=== PATIENT | female | born 1960 | race Hispanic/Latino ===

== ENCOUNTER 2018-10-03 08:14 | Inpatient (IN) | payer MEDICARE ==
[~2018-10-03] VITALS: Ht 152.4 cm; Wt 59.0 kg
--- OUTSIDE RECORDS SUMMARY | 2018-10-03 08:17 | XMS REPORT ---
Author Author [facility] Address Unknown Phone Unavailable Care Team Providers Care Cable Driller Name Role Phone Unavailable Unavailable Problems This patient has no known problems. Allergies, Adverse Reactions, Alerts This patient has no known allergies or adverse reactions. Medications This patient has no known medications. Encounters Start Date/Time End Date/Time Encounter Type Admission Type Attending [facility] Care Facility Care Department Encounter ID 2018-10-01 14:56:00 2018-10-01 14:56:00 Emergency E [facility]SE [id number] 2018-09-26 17:49:00 2018-09-26 17:49:00 Emergency E MHSE [id number]
--- OUTSIDE RECORDS SUMMARY | 2018-10-03 08:17 | XMS REPORT | Summary of Care ---
Author Author ALISSA Hester, SHAKEEL Organization Unknown Address Unknown Phone Unavailable Care Team Providers Care Cork Tile Floor Layer Name Role Phone ROSA RODNEY, CARLOS ENRIQUE MENSAH Unavailable Unavailable Unavailable Unavailable Functional Status Name Dates Details Functional status health issues are not documented Status: Name Dates Details Cognitive status health issues are not documented Status: Problems Name Dates Details Bilateral carotid artery disease (447.9, I77.9) Status: Active 3-vessel CAD (414.00, I25.10) Status: Active PVD (peripheral vascular disease) (443.9, I73.9) Status: Active Medications Name Dates Details PhosLo 667 MG TABS R.N. Active Pepcid 20 MG Oral Tablet * Refills: 0 R.N. Active Plavix 75 MG Oral Tablet * Refills: 0 R.N. Active Lipitor 20 MG Oral Tablet * Refills: 0 R.N. Active Toprol XL 25 MG Oral Tablet Extended Release 24 Hour * Refills: 0 R.N. Active Allergies and Adverse Reactions Name Dates Details No Known Allergies (Allergy) Status: Active Procedures Procedure Dates Details Procedures not documented Immunization Name Dates Details Immunizations not documented Social History Name Dates Details - Status: Name Dates Details Current every day smoker Vital Signs Date Test Result Details [id number] BP Systolic 102 mm[Hg] Status: BP Diastolic 66 mm[Hg] Status: Height 61 in Status: Weight 130 lb Status: Body Mass Index Calculated 24.56 kg/m2 Status: Body Surface Area Calculated 1.57 m2 Status: Results Date Description Value Details [id number] XRAY Chest 2 views [id number] Chest 2 views SEE NOTES Comments: Study: Chest 2 views DXClinical Indication: Coughing - preopComparison: Chest x-ray from 09/23/2017FINDINGS: The cardiac silhouette is normal in size. The lungs are clear andwithout consolidation or congestion. No pleural effusion or pneumothorax isseen. The osseous structures are stable. Right internal jugular approachdialysis catheter is stable. Aortic arch calcification is seen.IMPRESSION:No acute cardiopulmonary disease.SL: [id number] by: Neo Florezictated Date/time: 12/18/17 12:35Electronically Signed by: Neo Florez MD 12/19/1811:36FINAL REPORT Plan of Care Name Dates Details Planned Observations Planned Goals not documented Instructions Name Dates Details Instructions not documented Encounters Appointment; DR NIKIA REY Encounter Diagnosis: Problem not documented On: 07-Dec-2017 14:00 Appointment; PURVI MONTEJO M.D. Encounter Diagnosis: Problem not documented On: 07-Dec-2017 14:30
[2018-10-03 08:59] LABS: BASOPHILS # (AUTO) 0.1 (0.0-0.1); BASOPHILS % 0.6 % (0.0-1.0); EOSINOPHILS # (AUTO) 0.1 (0.0-0.4); EOSINOPHILS % 1.5 % (0.0-6.0); HEMATOCRIT 26.8 % (34.2-44.1); HEMOGLOBIN 9.2 g/dL (12.0-16.0); LYMPHOCYTES # (AUTO) 1.2 (1.0-3.2); LYMPHOCYTES % 12.9 % (18.0-39.1); MEAN CORPUSCULAR HEMOGLOBIN 31.9 pg (28-32); MEAN CORPUSCULAR HGB CONC 34.3 g/dL (31-35); MEAN CORPUSCULAR VOLUME 93.1 fL (81-99); MONOCYTES # (AUTO) 0.8 (0.2-0.8); MONOCYTES % 8.1 % (4.4-11.3); NEUTROPHILS # (AUTO) 7.3 (2.1-6.9); NEUTROPHILS % 76.5 % (38.7-80.0); PLATELET COUNT 165 x10e3/uL (140-360); RED BLOOD COUNT 2.88 x10e6/uL (3.6-5.1); RED CELL DISTRIBUTION WIDTH 13.9 % (11.7-14.4)
[2018-10-03 09:16] LABS: ALBUMIN 3.3 g/dL (3.5-5.0); ALBUMIN/GLOBULIN RATIO 0.8 (0.8-2.0); ANION GAP 19.5 mmol/L (8-16); CALCIUM 8.1 mg/dL (8.4-10.2); CREATININE, SERUM 10.4 mg/dL (0.57-1.11); POTASSIUM 4.5 mmol/L (3.5-5.1)
--- NOTE | 2018-10-03 09:39 | Diagnostic Imaging Report ---
A single frontal view of the chest. HISTORY: NO DIALYSIS X 3 WEEKS COMPARISON: None available. DISCUSSION: Portable technique, limits sensitivity of the exam. Overlying artifacts, including monitoring leads. Tubes/Lines: None Lungs and pleura: The lungs are well inflated. Curvilinear opacity at the periphery of the left midlung, may be an artifact, scarring, or less likely subsegmental atelectasis. Mildly increased interstitial markings. No evidence of a consolidative pneumonia or pulmonary alveolar edema. No definite pleural effusion or pneumothorax is identified. Heart and mediastinum: The cardiac silhouette and central pulmonary vasculature are mildly enlarged. Bones and soft tissues: Appear unremarkable, given this limited exam. IMPRESSION: Mild cardiomegaly, central pulmonary vascular congestion, and interstitial edema. Signed by: Dr. Woo May D.O., M.M.M. on 10/03/2018 9:35 AM
[2018-10-03 09:40] LABS: CLARITY,URINE SL CLOUDY (CLEAR); COLOR,URINE YELLOW (YELLOW)
[2018-10-03 09:41] LABS: BILIRUBIN,URINE NEGATIVE (NEGATIVE); KETONES,URINE NEGATIVE (NEGATIVE); LEUKOCYTE ESTERASE ,URINE TRACE (NEGATIVE); NITRITE,URINE NEGATIVE (NEGATIVE); PROTEIN,URINE DIPSTICK 2+ (NEGATIVE); URINE UROBILINOGEN 0.2 mg/dL (0.2 - 1)
[2018-10-03 09:42] LABS: BACTERIA,URINE MODERATE /HPF; WBC,URINE (MAN) >50 /HPF (0-5)
[2018-10-03 09:43] LABS: EPITHELIAL CELLS,URINE FEW /LPF
[2018-10-03] MEDS ORDERED: VANCOMYCIN 1GM/NS 250 ML 250 ML IV ONE (10:30)
[2018-10-03] MEDS: PIPERACILLIN/TAZO 2.25 GM 50 ML IV SCH ×2 (10:41→20:35)
[2018-10-03 11:31] LABS: INR 1.07; PROTHROMBIN TIME 14.4 seconds (11.9-14.5)
[2018-10-03 11:38] LABS: CREATINE KINASE MB 6.3 ng/mL (0-5.0)
[2018-10-03] MEDS ORDERED: DEXTROSE 50% SYRINGE 50 ML IV PRN ×2 (11:45→15:15)
[2018-10-03] MEDS ORDERED: ONDANSETRON HCL INJ 2MG/ML 2ML 2 MG/ML VIAL IV PRN (11:45)
--- NOTE | 2018-10-03 12:11 | Diagnostic Imaging Report ---
LEFT FOOT - 3 Images HISTORY: Dialysis, great toe infection COMPARISON: None available. FINDINGS: Bones: Irregular erosion of the tuft of the distal phalanx of the great toe. Joints: Mild hallux valgus deformity and associated mild osteoarthrosis. Soft tissues: Nonspecific soft tissue swelling of the distal great toe. IMPRESSION: Findings compatible with osteomyelitis involving the distal phalanx of the great toe. Signed by: Dr. Woo May D.O., M.M.M. on 10/03/2018 12:07 PM
--- NOTE | 2018-10-03 12:24 | NUR ---
Call placed to Dialysis for stat orders. Spoke with Doug at the regional service manager center.
[2018-10-03 12:44] VITALS: BP 155/70
--- NOTE | 2018-10-03 14:15 | NUR ---
Call placed to dialysis environmental science technician and spoke with tapan. Spoke with Dr. hess and he stated "I have not heard from anybody and this needs to be called again".
[2018-10-03] MEDS ORDERED: METHYLPREDNISOLONE SOD SUCC 40 MG/ML VIAL 1ML IV SCH (15:15)
[2018-10-03] MEDS ORDERED: HYDROCODONE/APAP 5MG-325MG TAB PO PRN (15:15)
[2018-10-03] MEDS ORDERED: ACETAMINOPHEN 325 MG TAB PO PRN (15:15)
[2018-10-03 15:17] VITALS: BP 187/79
--- NOTE | 2018-10-03 15:20 | NUR ---
REC'D PT IN SEMI-FOWLERS POSITION. DIALYSIS PT. DIALYSIS NURSE AT BEDSIDE TO START DIALYSIS. PT C/O PAIN ON LEFT FOOT/TOE. DR. DING SEEN LEFT LEG/TOE. NO S/S OF DISTRESS.
[2018-10-03 15:21] VITALS: BP 187/79
[2018-10-03] MEDS ORDERED: SODIUM CHLORIDE 0.9% 1000ML 1,000 ML ONE (15:28)
[2018-10-03] MEDS ORDERED: METHYLPREDNISOLONE SOD SUCC 40 MG/ML VIAL 1ML IV NR (15:30)
[2018-10-03] MEDS ORDERED: NOVOLIN R100 UNIT/1 SQ (15:49)
[2018-10-03] MEDS ORDERED: IMODIUM2 MG PO (15:49)
[2018-10-03] MEDS ORDERED: CLOPIDOGREL75 MG PO (15:49)
[2018-10-03] MEDS ORDERED: TOPROL XL25 MG PO (15:49)
[2018-10-03] MEDS ORDERED: CALCIUM ACETAT667 M1 PO (15:49)
[2018-10-03] MEDS ORDERED: PANTOPRAZOLE SO40 MG PO (15:49)
[2018-10-03] MEDS ORDERED: TUMS ULTRA400 MG PO (15:49)
[2018-10-03] MEDS ORDERED: [UNRECOGNIZED DRUG - REMARK] OD (15:49)
[2018-10-03 15:50] VITALS: BP 187/79
[2018-10-03] MEDS: CALCIUM ACETATE 667 MG GELCAP PO SCH ×2 (17:00→20:35)
[2018-10-03] MEDS ORDERED: VANCOMYCIN 1GM/NS 250 ML 250 ML IV SCH (17:00)
[2018-10-03 17:09] LABS: CREATINE KINASE MB 5.7 ng/mL (0-5.0)
[2018-10-03] MEDS: INSULIN LISPRO 100 UNIT/1 ML 3ML VIAL SQ SCH ×2 (17:14→20:42)
[2018-10-03] MEDS ORDERED: [UNRECOGNIZED DRUG - OTHER] OP PRN (17:30)
--- NOTE | 2018-10-03 18:30 | NUR ---
PT FINISHED WITH DIALYSIS. TOLERATED IT WELL AND NO SEVERE S/S OF DIALYSIS PER PT AND DIALYSIS NURSE. 1.6 L OF FLUID REMOVED PER DIALYSIS NURSE. NO S/S OF DISTRESS. DIALYSIS NURSE SAID DIALYSIS WILL BE DONE TOMORROW MORNING. PASS LIFTER NURSE REPORT ON THAT.
[2018-10-03 19:17] VITALS: BP 135/61
--- NOTE | 2018-10-03 19:17 | NUR ---
PT IS RESTING IN BED. NO RESPIRATORY DISTRESS NOTED. BED IN THE LOWEST POSITION, LOCKED, AND CALL LIGHT WITHIN REACH. WILL CONTINUE TO MONITOR.
[2018-10-03] MEDS ORDERED: SODIUM CHLORIDE 0.9% 250ML 250 ML ONE (20:18)
--- NOTE | 2018-10-03 20:18 | Consultation ---
DATE OF CONSULTATION: 10/03/2018 Renal Consultation REASON FOR CONSULTATION: End-stage renal disease, metabolic acidosis, and volume overload. HISTORY OF PRESENT ILLNESS: A 58-year-old female with end-stage renal disease, on hemodialysis Thursday, Thursday, and Thursday, who has not had dialysis since September 10, 2018, presented to [facility] with shortness of breath and feeling full in her chest. The patient states that her dialysis center [facility] moved and for unclear reasons, the patient was unable to move to the new location. The patient was not placed in a new dialysis center and has been unable to get dialysis. The patient states she has been at [facility] 3 times and every time has been discharged. The patient went to her dialysis on 10/01/2018, but because she had missed so much dialysis, she was instructed to go back to the emergency room. The patient also developed toe pain in her left great toe. When she arrived, her blood pressure was 157/70 with a pulse of 88, respiratory rate of 18. The patient was admitted and Nephrology consultation was called. REVIEW OF SYSTEMS: As above. Positive shortness of breath. Some nausea. Some anorexia. No chest pain. No diarrhea. No vomiting. Otherwise, complete review of systems was done and all systems other than mentioned are negative. PAST MEDICAL HISTORY: 1. End-stage renal disease, on hemodialysis Thursday, Thursday, and Thursday. 2. Diabetes type 2. 3. Hypertension. 4. Coronary artery disease. 5. Anemia secondary to chronic kidney disease. PAST SURGICAL HISTORY: 1. CABG. 2. Left upper extremity AV fistula. SOCIAL HISTORY: Positive tobacco. No alcohol. No IV drugs. FAMILY HISTORY: Brother with end-stage renal disease. ALLERGIES: NO KNOWN DRUG ALLERGIES. CURRENT MEDICATIONS: See list. PHYSICAL EXAMINATION: VITAL SIGNS: Blood pressure 121/74, pulse 83, respiratory rate 20, temperature 97.7. GENERAL: No apparent distress. HEENT: Oropharynx is clear. No scleral icterus. No peripheral edema. NECK: Supple. Elevated jugular venous pressure. No lymphadenopathy. CHEST: Decreased breath sounds at bases anteriorly bilaterally. CARDIOVASCULAR: Regular rhythm. No murmurs or rubs. ABDOMEN: Soft. Positive bowel sounds. No tenderness. No rebound. EXTREMITIES: 1+ edema. IMAGING: Chest x-ray, mild cardiomegaly, vascular congestion. LABORATORY DATA: Sodium 141, potassium 4.5, chloride 117, CO2 9, BUN 98, creatinine 10.4, calcium 8.1, albumin 3.3. White count 9.5, hemoglobin 9.2, hematocrit 26.8, platelets 165. ASSESSMENT/PLAN: 1. End-stage renal disease. The patient is severely acidotic, volume overload. We will do emergency dialysis today and continue Thursday, Thursday, and Thursday. We will get case specialist to help set up for dialysis. 2. Anemia secondary to chronic kidney disease. We will start the patient on Epogen. Check iron stores. 3. Hypertension. Continue home medications. 4. Metabolic acidosis secondary to uremia. We will do dialysis today. 5. Volume overloaded. We will ultrafiltrate with hemodialysis. 6. Diabetes per primary team. MD DIANELYS Candelario/CARLEEN /[id number]
[2018-10-03 20:21] VITALS: BP 135/61
[2018-10-03] MEDS: HEPARIN SOD (PORCINE) 5,000 UNIT/ML VIAL SC SCH (20:41)
[2018-10-03 21:33] LABS: CREATINE KINASE MB 4.4 ng/mL (0-5.0)
--- NOTE | 2018-10-03 23:08 | History and Physical ---
CHIEF COMPLAINT: Missed hemodialysis for 3 weeks. HISTORY OF PRESENT ILLNESS: This is a 58-year-old female, known ESRD on dialysis patient Thursday, Thursday, Thursday; type 2 diabetes; hypertension, who apparently has missed hemodialysis for the last 3 weeks due to dialysis unit moving locations. The patient reports that she used to go to [facility], followed up with Dr. Lundy and due to the change in the dialysis unit, she has difficulty with transportation going to the new location in [place]. She has not been able to communicate with the dialysis unit nor has she been able to find a new location. The patient now reports to the ED with hemodialysis needs as well as a left big toe pain, has been ongoing for the last several days now. She denies any history of hyperuricemia. The patient denies any chest pain, palpitation, nausea, or vomiting. The patient is seen and evaluated at bedside on the medical floor. She is currently doing well with no other issues. She is going to receive hemodialysis . REVIEW OF SYSTEMS: Pertinent positives: Left big toe pain. Pertinent negatives: Denies any chest pain, palpitation, nausea, vomiting, diarrhea, dysuria, hematuria, frequency, urgency, lightheadedness, dizziness, abdominal pain, headaches, shortness of breath, cough, congestion, fever, or any other complaints. The rest of 14-point review of systems have been reviewed with the patient and are negative. ALLERGIES: TO IBUPROFEN. HOME MEDICATIONS: None recorded at this time. PAST MEDICAL HISTORY: ESRD on dialysis, type 2 diabetes, hypertension. PAST SURGICAL HISTORY: Dialysis tunneled catheter. FAMILY HISTORY: Hypertension and diabetes. SOCIAL HISTORY: No drugs. No alcohol. Does not smoke. Good social support. PHYSICAL EXAMINATION: VITAL SIGNS: Temperature is 95.6, pulse is 78, respiratory rate is 18, blood pressure is 155/70, pulse ox 100% on room air. GENERAL: Not in acute distress. Alert and oriented x3. Cooperative on examination. HEENT: Head is normocephalic and atraumatic. Eyes; pupils are equal, round, and reactive to light bilaterally. Extraocular motions are intact bilaterally. NECK: Supple. Good range of motion throughout. No evidence of any erythema or exudates in the posterior pharynx. She has poor dentition. PULMONARY: Clear to auscultation bilaterally. No wheezing, rales, or rhonchi. No crackles appreciated. CARDIOVASCULAR: Positive S1, S2. No murmurs, rubs, or gallops appreciated. ABDOMEN: Soft, nondistended, and nontender to palpation. Bowel sounds present. MUSCULOSKELETAL: Strength is 5/5 throughout. No evidence of any muscle deficits on examination. No weakness appreciated. NEUROLOGICAL: Cranial nerves II through XII grossly intact. No evidence of any neurological deficits on exam. SKIN: Intact. Warm to touch. Good cap refill. PSYCHIATRIC: Normal affect and mood. EXTREMITIES: No edema. Good range of motion throughout. toe is swollen, tender to palpation on examination. LAB FINDINGS: Showed white count of 9.5, hemoglobin 9.2, hematocrit 26.8, and platelets of 165. Coagulation; PT 14, INR 1, PTT 32. Chemistry; sodium 141, potassium 4.5, chloride 117, bicarb 9, anion gap of 19, BUN 98, creatinine 10.4, calcium 8.1, glucose 114. LFTs were normal. CK 77, troponin 0.042, albumin 3.3. Urinalysis concerning for underlying UTI. Blood culture is pending. IMAGING STUDIES: Chest x-ray, mild cardiomegaly with central pulmonary vascular congestion and interstitial edema. Foot x-ray is compatible with osteomyelitis involving the distal phalanx of the great toe. IMPRESSION: 1. End-stage renal disease, on hemodialysis. 2. Anemia of end-stage renal disease. 3. Left big toe concern for underlying osteomyelitis. 4. Type 2 diabetes. 5. Hypertension. PLAN: At this time, we will get ID and Nephrology consult to put her on hemodialysis treatment. This is to perform later today. She will likely need treatment tomorrow. We will discuss with Case Management about placement for a new dialysis unit. ID was consulted as her imaging studies are consistent with the left great toe osteomyelitis. She will continue with IV vancomycin and Zosyn at this time. Put on insulin sliding scale for underlying diabetes. Get a hemoglobin A1c, lipid panel, as well as a uric acid level to rule out any kind of hyperuricemia. Get PT/OT evaluation, Case Management consultation, and heparin for DVT prophylaxis. MD RAFAELA Ayala/MODL /[id number]
--- NOTE | 2018-10-03 23:43 | Consultation ---
DATE OF CONSULTATION: REASON FOR CONSULTATION: Infection of the left foot. HISTORY OF PRESENT ILLNESS: This patient who is a 58-year-old Georgian female with history of end-stage renal disease on hemodialysis, she has a left upper extremity fistula, history of atherosclerotic disease, peripheral vascular disease. Apparently, she was seen in [facility] recently and she was told that she has no circulation going to her left upper extremity as well as left foot. However, she told me she did have an ulcer on that foot, which healed. Now she is coming with redness and swelling of her left big toe. No specific trauma, but getting progressively worse over the last few days. No fever, no chills, but she feels chills occasionally. The patient came to emergency room where she was evaluated and admitted. PAST MEDICAL HISTORY: Hypertension, diabetes mellitus for several years, coronary artery disease, neuropathy, atherosclerotic disease, peripheral vascular disease, end-stage renal disease on hemodialysis for 9 months. PAST SURGICAL HISTORY: CABG, AV fistula of left upper extremity. ALLERGIES: NKA. SOCIAL HISTORY: She said she smokes every day, but she says she does not smoke too much. She has been warned about smoking several times, but she says she cannot stop. FAMILY HISTORY: Hypertension and diabetes run in the family. REVIEW OF SYSTEMS: HEENT: There is no headache, visual changes, hearing changes. GI: There is no nausea, no vomiting, no diarrhea. NEURO: There is no seizure activity or local weakness. SKIN: There are no other rashes. JOINTS: There is no erythema or edema. LABORATORY DATA: Reviewed. Her blood culture is still pending. White count 9.5, hemoglobin 9.2, and hematocrit 26. Sodium 141, potassium 4.5, and creatinine of 10. IMAGING DATA: Her foot x-ray showed osteomyelitis of distal phalanx of the great toe. MEDICATION LIST: Reviewed. She is on Zosyn and vancomycin. PHYSICAL EXAMINATION: GENERAL: She is currently alert, oriented, does not seem to be in acute distress. She does have redness and swelling. VITAL SIGNS: Stable. Currently afebrile. HEENT: She is not icteric. NECK: Supple. No JVD. No lymphadenopathy. No thyromegaly. CHEST: Clear bilateral. HEART: S1, S2. No S3, S4, or murmur. ABDOMEN: Soft. Bowel sounds present. No tenderness. EXTREMITIES: There is no edema, except on the left big toe there is redness and there is swelling. The pulse is weakly felt bilateral in the dorsalis pedis. There is no drainage at the present time from her toe, but on the big toe there is redness and swelling as mentioned above. IMPRESSION: Osteomyelitis of the left big toe in a patient with end-stage renal disease, atherosclerotic disease, peripheral vascular disease, hypertension, diabetes with neuropathy. PLAN: We will put on vancomycin 1 g in a patient with hemodialysis, first dose now. Continue with Zosyn 2.25 IV every 8 hours. Obtain sedimentation rate and C-reactive protein. The patient may end up losing her foot or her toe. Obtain an MRI, podiatry consultation, and vascular workup. We will try to get records from [facility], end-stage renal disease on hemodialysis and diabetes mellitus with neuropathy. Smoking discussed. The patient must quit smoking. She is at risk for further amputation. She fully understood. We will follow. MD JOHN Mccain/MODL /[id number]
[2018-10-04] VITALS (7 sets, daily range): BP systolic 96–149; BP diastolic 55–73
[2018-10-04] MEDS: CALCIUM ACETATE 667 MG GELCAP PO SCH ×5 (05:55→21:27)
[2018-10-04 05:57] LABS: BASOPHILS # (AUTO) 0.1 (0.0-0.1); BASOPHILS % 0.7 % (0.0-1.0); EOSINOPHILS # (AUTO) 0.1 (0.0-0.4); EOSINOPHILS % 0.5 % (0.0-6.0); HEMATOCRIT 23.5 % (34.2-44.1); HEMOGLOBIN 8.4 g/dL (12.0-16.0); LYMPHOCYTES % 21.4 % (18.0-39.1); MEAN CORPUSCULAR HEMOGLOBIN 31.3 pg (28-32); MEAN CORPUSCULAR HGB CONC 35.7 g/dL (31-35); MEAN CORPUSCULAR VOLUME 87.7 fL (81-99); MONOCYTES # (AUTO) 0.8 (0.2-0.8); MONOCYTES % 8.5 % (4.4-11.3); NEUTROPHILS # (AUTO) 6.3 (2.1-6.9); NEUTROPHILS % 68.6 % (38.7-80.0); PLATELET COUNT 134 x10e3/uL (140-360); RED BLOOD COUNT 2.68 x10e6/uL (3.6-5.1); RED CELL DISTRIBUTION WIDTH 13.3 % (11.7-14.4)
[2018-10-04 06:32] LABS: ALBUMIN 2.8 g/dL (3.5-5.0); ALBUMIN/GLOBULIN RATIO 0.8 (0.8-2.0); ANION GAP 15.3 mmol/L (8-16); CALCIUM 7.8 mg/dL (8.4-10.2); CREATINE KINASE MB 1.9 ng/mL (0-5.0); CREATININE, SERUM 6.81 mg/dL (0.57-1.11); POTASSIUM 3.3 mmol/L (3.5-5.1)
[2018-10-04 06:39] LABS: PHOSPHORUS 4.9 MG/DL (2.3-4.7)
[2018-10-04 06:49] LABS: FERRITIN 515.53 ng/mL (4.63-204.00)
[2018-10-04] MEDS: INSULIN LISPRO 100 UNIT/1 ML 3ML VIAL SQ SCH ×4 (07:30→21:30)
[2018-10-04] MEDS: CLOPIDOGREL BISULFATE 75 MG TAB PO SCH (08:10)
[2018-10-04] MEDS: PANTOPRAZOLE SOD 40 MG TABEC PO SCH (08:10)
[2018-10-04] MEDS: PIPERACILLIN/TAZO 2.25 GM 50 ML IV SCH ×2 (08:10→21:27)
[2018-10-04] MEDS: HEPARIN SOD (PORCINE) 5,000 UNIT/ML VIAL SC SCH ×2 (08:36→21:29)
[2018-10-04] MEDS: METOPROLOL SUCCINATE 25 MG TAB XL PO SCH (09:00)
--- NOTE | 2018-10-04 13:25 | NUR ---
Nutrition Screen Note RD Recommendation for Physician: -Continue current diet. -Consider renal restriction if pt has elevated potassium and phos levels. Plan of Care: RD following, monitoring for tolerance and adequacy. Educated provided. Nutrition reason for involvement: Nutrition Risk Trigger- MST 4 Primary Diagnose(s): Acidosis, cellulitis, ESRD on HD PMH: ESRD on dialysis patient Thursday, Thursday, Thursday; type 2 diabetes; hypertension Ht: 60 in Wt: 130 lb BMI: 25.38kg/m2 IBW: [address] Assessment: (10/04) 58 YOF admitted for acidosis, cellulitis and ESRD on HD. Pt reports that her appetite has been poor for the past week and that she has seen a decline in her weight, she reported she lost 13-14 pounds in the last 3 weeks d/t diarrhea and poor intake, no past weight records were found in EMR. Offered ONS, pt denied supplement at this time. Pt denied N/V/C or any chewing or swallowing issues at this current time as well. Pt was educated on MNT for diarrhea and was given handouts. Pt denied education on ESRD d/t already been given education at her dialysis clinic. Chart reviewed. Noted: A1c-5.7, POC Gluc-206. Labs and meds reviewed. Will continue to monitor. Current Diet: 1800 ADA Malnutrition Evaluation (10/04) The patient meets criteria for MILD protein-calorie malnutrition. Energy intake: <50% of estimated energy requirements for >5 days Weight loss: >5% in 1 month (Acute)-pt had a 9% weight loss according to pt's reports of losing 13-14 pounds within 3 weeks. Fat loss: none Muscle loss: none Supporting Evidence: Fluid accumulation: none Functional Status: unable to evaluate Diet Education Needs Assessment: Diet education indicated, pt accepted education for MNT for diarrhea. Learner(s): pt Barriers: none Cultural/Language Modifications: none Readiness: acceptance Method: discussion and handout Topics: MNT for diarrhea Understanding/Compliance: verbalized understanding and anticipate good compliance Nutrition Care Level: low Signed: Beckie Wood RD, LD Addendum: 10/04/18 at 1329 by Beckie Wood DIET Nutrition Care Level: Mod*
--- NOTE | 2018-10-04 13:28 | NUR ---
SPOKE WITH PT WHOM STATES THAT SHE WAS BEING SEEN AT A [facility] BY HER HOUSE AND THEY CLOSED THEN SHE WAS TRANSFERRED TO ANOTHER FACILITY AND TOLD TO FIND TRANSPORTATION. SHE STATES SHE DOES NOT WANT TO GO TO [facility] ANY MORE. CALLED [facility] NUMBER [phone] AND SPOKE WITH MERVAT WHOM STATES SHE WAS BEING SEEN AT [facility] [id number] IN [place] AND [phone] AND IT SHOWS IN THE NOTES THAT SHE HAS REQUESTED TO TRANSFER TO [facility] [address]. CALLED [facility] S[facility]ENT AND SPOKE WITH ELISEO WHOM STATES PT SHOWED UP AT HER FACILITY AFTER NOT BEING SEEN FOR 3 WEEKS SO THEY SENT TO TO THE ER FOR A POTASSIUM LEVEL. ASKED HER IF THEY HAD INITIATED THE TRANSFER, SHE STATES SHE DID NOT KNOW ANYTHING ABOUT A TRANSFER REQUEST. PT STATES SHE DOES NOT WANT TO GO BACK TO [facility]. CALLED SILVINO [phone] LEFT MESSAGE TO GET ASSISTANCE WITH GETTING THE TRANSFER INITIATED, WILL LET HER KNOW THAT LTAC WILL BE NEXT STEP FOR PT SO WILL NEED CHAIR FOR WHEN SHE DISCHARGES FROM THERE.
--- NOTE | 2018-10-04 14:14 | NUR ---
SPOKE WITH SILVINO FROM [facility], GAVE INFORMATION TO THE [facility] FOR JAYLA HORVATH [phone], SHE STATES SHE WILL CONTACT DR TO SEE IF ABLE TO GET HIM TO COME TO THE REQUESTED FACILITY OR TO FIND OUT WHAT DR THEY WANT TO TAKE OVER CARE, WILL ASSIST WITH THE TRANSFER AND TRANSPORTATION ADVISED PT WILL BE GOING TO HAVE A CHAIR UPON DISCHARGE IF SHE GOES TO AN LTAC OR HOME. WILL UPDATE WHEN GET DEFINITE PLAN.
[2018-10-04] MEDS ORDERED: ONDANSETRON HCL 4 MG ORAL DISINTEGRATING TAB PO PRN (16:00)
[2018-10-04] MEDS: EPOETIN ALFA 10000 UNIT/ML VIAL SC SCH (17:39)
--- NOTE | 2018-10-04 19:00 | NUR ---
Patient visited in room during nursing rounds. Patient alert and oriented x3. Ambulatory in room prn. Pt is a dialysis pt (MWF) with AV Fistula noted on left upper arm. Scab on left great toe open to air. Patient denies any pain or discomfort at this time. On scheduled IV antibiotics. Call sun within reach. Will monitor closely.
--- NOTE | 2018-10-04 19:38 | Progress Note ---
DATE: 10/04/2018 SUBJECTIVE: The patient is doing well today with no complaints. She is currently receiving hemodialysis. PHYSICAL EXAMINATION: VITAL SIGNS: Temperature is 96.8, pulse 85, respiratory rate is 18, blood pressure 146/67, and pulse ox 100% on room air. GENERAL: Not in acute distress. Alert and oriented x3. Cooperative on examination. HEENT: Head is normocephalic and atraumatic. Eyes; pupils are equal, round, and reactive to light bilaterally. Extraocular motions are intact bilaterally. NECK: Supple. Good range of motion throughout. No evidence of any erythema or exudates in the posterior pharynx. She has poor dentition. PULMONARY: Clear to auscultation bilaterally. No wheezing, rales, or rhonchi. No crackles appreciated. CARDIOVASCULAR: Positive S1, S2. No murmurs, rubs, or gallops appreciated. ABDOMEN: Soft, nondistended, and nontender to palpation. Bowel sounds present. MUSCULOSKELETAL: Strength is 5/5 throughout. No evidence of any muscle deficits on examination. SKIN: Intact. Warm to touch. Good cap refill. PSYCHIATRIC: Normal affect and mood. EXTREMITIES: No edema. Good range of motion throughout. LABORATORY DATA: Lab findings show white count of 9.2, hemoglobin 8.4, hematocrit is 23.5, and platelets of 134. Chemistries none. MICROBIOLOGY: Urine cultures pending. Blood culture shows Gram variable rods on one of two. The other one has still no growth. Urine cultures are pending. IMAGING STUDIES: None for today. IMPRESSION: 1. End-stage renal disease, on hemodialysis. 2. Anemia of end-stage renal disease. 3. Left big toe osteomyelitis. 4. Type 2 diabetes. 5. Hypertension. PLAN: At this time ID is following. She is on IV antibiotics. IV antibiotic arrangement per ID. Nephrology consulted for hemodialysis treatment. She is currently receiving hemodialysis now. We are going to work on LTAC placement. Discussed with Case Management. Get PT, OT daily. She is on heparin for DVT prophylaxis. MD RAFAELA Ayala/MODL /[id number]
[2018-10-05] VITALS (7 sets, daily range): BP systolic 113–143; BP diastolic 56–71
[2018-10-05] MEDS: CALCIUM ACETATE 667 MG GELCAP PO SCH ×5 (05:15→20:40)
[2018-10-05] MEDS: INSULIN LISPRO 100 UNIT/1 ML 3ML VIAL SQ SCH ×4 (07:30→20:42)
--- NOTE | 2018-10-05 07:30 | NUR ---
REC'D PT IN SEMI-WOODRUFF'S POSITION. NO S/S OF DISTRESS. IV TO THE R WRIST AND NO COMPLICATIONS TO SITE. SIDE RAILS UP X2, BED IN LOWEST POSITION, AND CALL REYNA WITHIN REACH.
[2018-10-05] MEDS: PIPERACILLIN/TAZO 2.25 GM 50 ML IV SCH ×2 (08:05→20:40)
[2018-10-05] MEDS: CLOPIDOGREL BISULFATE 75 MG TAB PO SCH (08:05)
[2018-10-05] MEDS: PANTOPRAZOLE SOD 40 MG TABEC PO SCH (08:05)
[2018-10-05] MEDS: METOPROLOL SUCCINATE 25 MG TAB XL PO SCH (08:06)
--- NOTE | 2018-10-05 08:15 | NUR ---
PT REFUSED CALCIUM ACETATE DUE TO MAKING HER NAUSEOUS.
--- NOTE | 2018-10-05 11:50 | NUR ---
PT LAYING IN BED ON SEMI-FOWLERS POSITION. PT ON RA AND NO S/S OF DISTRESS NOTED. BROTHER AT BEDSIDE. BED IN LOWEST POSITION, SIDE RAILS UP X2, AND CALL REYNA WITHIN REACH.
[2018-10-05] MEDS: HEPARIN SOD (PORCINE) 5,000 UNIT/ML VIAL SC SCH ×2 (11:51→20:42)
--- NOTE | 2018-10-05 15:19 | NUR ---
ORDERS FOR LTAC CHOICE LETTER SIGNED FOR [facility] MOT INITIATED AND PLACED IN PACKET AT DESK DARSHAN WITH [employer] NOTIFIED OF CONSULT TRANSFER PENDING RESULTS OF ARTERIAL DUPLEX; MAY NEED ANGIOGRAM DR RODRIGUEZ TO F/U
--- NOTE | 2018-10-05 15:30 | NUR ---
PT IS RESTING WITH EYES OPENED. NO S/S OF DISTRESS. SIDE RAILS UPX2, BED IN LOWEST POSITION, AND CALL REYNA WITHIN REACH.
--- NOTE | 2018-10-05 16:12 | NUR ---
PT REFUSED CALCIUM ACETATE DUE TO MAKING HER NAUSEOUS.
--- NOTE | 2018-10-05 16:16 | Consultation ---
DATE OF CONSULTATION: 10/05/2018 Cardiology Consultation REASON FOR CONSULTATION: Evaluate vascular status in a lady with left great toe infection and pain. HISTORY OF PRESENT ILLNESS: Ms. Best is a 58-year-old with past history of hypertension, type 2 diabetes for many years, hypercholesterolemia, coronary artery disease with prior history of three-vessel bypass with Dr. Gaines at [facility] less than one year ago, anemia of chronic kidney disease, peripheral artery disease with known poor circulation of the left lower extremity. The patient reports that she came into the hospital after having 3-week history of severe left great toe pain with swelling, fluctuance, and discoloration. She denied any subjective fevers or chills, however, I just could not understand it at any point in time. She had noninvasive evaluation, which included x-ray of the left foot, which showed irregular erosion of the tuft of the distal phalanx of the great toe with soft tissue swelling, which was concerning for osteomyelitis. The patient has longstanding history of typical claudication symptoms of both legs, left greater than right with severe pain in the calf with minimal activity. She reports that she currently smokes, but is trying to cut back, does have longstanding history of circulatory issues throughout her bodies. Cardiology is consulted. PAST MEDICAL HISTORY: 1. Hypertension, essential. 2. Type 2 diabetes. 3. Hypercholesterolemia. 4. End-stage renal disease, on hemodialysis for one year now via left AV fistula. 5. PAD with claudication of the bilateral lower extremities, left greater than right and that is chronic. 6. 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 PAST SURGICAL HISTORY: 1. History of left upper extremity AV fistula. 2. History of three-vessel CABG less than one year ago with Dr. Gaines at [facility], unclear details. FAMILY HISTORY: Mother and father , unknown any family history with them. SOCIAL HISTORY: She is a rea-bpma-zob-day former smoker. Now she smokes just a couple of cigarettes a day. Denies any alcohol or any illicit drug use. ALLERGIES: INCLUDE IBUPROFEN. MEDICATIONS: 1. Calcium acetate 667 mg p.o. five times a day. 2. Plavix 75 mg daily. 3. Insulin regular 10 units subcu b.i.d. 4. Toprol-XL 25 mg daily. 5. Protonix 40 mg daily. 6. Imodium 2 mg p.r.n. REVIEW OF SYSTEMS: GENERAL: Denies any fevers, chills, or any weight changes. HEENT: No headaches, visual complaints, sore throat, or stuffy nose. RESPIRATORY: Denies any pleuritic chest pain. Has occasional nonproductive cough. CARDIOVASCULAR: Denies any chest pain or discomfort. Has class III exertional dyspnea symptoms. No palpitations. No orthopnea or PND. GI: Denies any abdominal pain, nausea, vomiting, bright red blood per rectum, melena, hematemesis. : Positive for hemodialysis with scant urine output. MUSCULOSKELETAL: Positive for bilateral calf cramping with ambulation and has occasional ischemic rest pain of the left calf region and positive for left great toe pain as noted above. ENDOCRINE: Positive for diabetes. NEUROLOGIC: Positive for right facial muscle weakness from old Perera's palsy. No history of TIA or stroke. Does have tingling and nerve damage to the left hand from her left AV fistula surgery. Remainder of review of systems is negative or otherwise mentioned. PHYSICAL EXAMINATION: VITAL SIGNS: Height of 60 inches, weight of 130 pounds, BMI is 25.4. Temperature of 96.8, pulse of 82, respiratory rate 18, blood pressure 143/71, and O2 saturation 99% on room air. GENERAL: This is a well-nourished, frail lady, who is currently in no apparent distress. HEENT: Normocephalic, atraumatic. There is right facial muscle weakness from old Perera's palsy. Extraocular movements are intact. Oropharynx is clear with poor dentition. NECK: There are bilateral carotid bruits plus a left AV fistula transmitted sound in the left neck area. CARDIOVASCULAR: Regular rate and rhythm. Normal S1, S2. A 3/6 systolic ejection murmur at the right upper sternal border. LUNGS: Show moderate decreased air flow and diminished air entry compatible with COPD type changes. There is a midline sternotomy scar. ABDOMEN: Soft, nontender, nondistended. Normoactive bowel sounds. No hepatosplenomegaly. BACK: No costovertebral angle tenderness. EXTREMITIES: Warm. Left arm has AV fistula. No radial or ulnar pulse in that hand. 1+ right radial pulse, 1 to 2+ right femoral pulse, 1+ left femoral pulse. There is a bruit in the left groin region that radiates into the abdomen. No pedal pulses. No edema. There is ischemic discoloration of the left great toe. NEUROLOGIC: Positive for right facial droop and facial muscle weakness secondary to Perera's palsy. Strength is 5-/5 in all four extremities. There is diminished left hand sensation as compared to the right hand sensation. There is diminished sensation in both her feet. LABORATORY DATA: White count of 9.2, hemoglobin 8.4, hematocrit 23.5, platelets of 134. Sodium 137, potassium 3.3, chloride 105, bicarb 20, BUN 60, creatinine 6.81, glucose of 93. A1c was 5.7%. Calcium 7.8, phos 4.9. Iron 49, TIBC 207, percent saturation 24, ferritin is 515. AST 15, ALT 25, alkaline phosphatase 69, total protein of 6.3, albumin of 2.8. INR is 1.07. UA shows greater than 50 white cells. Foot x-ray shows left great toe osteomyelitis type changes in the tip of the toe. Chest x-ray shows cardiomegaly and central pulmonary vascular interstitial congestion. EKG reveals sinus rhythm, LVH, and nonspecific T-wave inversions. DIAGNOSES: 1. Left great toe osteomyelitis. 2. Peripheral arterial disease with ischemic rest pain of the left lower extremity and superimposed severe poor circulation as evident on history and clinical examination. 3. End-stage renal disease, on hemodialysis. 4. Hypertension, essential. 5. Hypercholesterolemia. 6. Type 2 diabetes. 7. Coronary artery disease with prior history of CABG. 8. Bilateral carotid bruit. 9. Chronic obstructive pulmonary disease, smoker. PLAN/RECOMMENDATIONS: 1. From a cardiovascular standpoint, we will go ahead and check arterial duplex to evaluate her circulation. I am suspecting left aortoiliac disease and likely occlusion or near occlusion of the left SFA. 2. Continue antiplatelet therapy. 3. Statin therapy. 4. Risk factor modification and medical therapy. 5. We will evaluate her heart function with echocardiogram. 6. We have counseled the patient on the importance of smoking cessation. Thank you for this referral. We will continue to follow this patient. MD ENOCH Doshi/CARLEEN /[id number]
--- NOTE | 2018-10-05 18:28 | NUR ---
DR. DING APPROVED FOR PT TO TAKE OWN CALCIUM ACETATE FROM HOME. CALCIUM ACETATE FROM HOSPITAL MAKES PATIENT NAUSEOUS.
--- NOTE | 2018-10-05 18:31 | NUR ---
PT IS LAYING IN BED WITH NO S/S OF DISTRESS. BED IN LOWEST POSITION, SIDE RAILS UP X2, AND CALL REYNA WITHIN REACH.
[2018-10-05] MEDS ORDERED: CLOPIDOGREL BISULFATE 75 MG TAB PO NR (20:00)
--- NOTE | 2018-10-05 20:12 | Progress Note ---
DATE: 10/05/2018 Medicine Progress Note SUBJECTIVE: The patient is doing well today with no other complaints. She is scheduled to have lower extremity angiogram later this week by Cardiology. OBJECTIVE: VITAL SIGNS: Temperature 96.9, pulse 70, respiratory rate 18, blood pressure 139/67, and pulse ox 100% on room air. GENERAL: Not in acute distress. Alert and oriented x3. Cooperative on examination. HEENT: Head is normocephalic and atraumatic. Eyes; pupils are equal, round, and reactive to light bilaterally. Extraocular movements are intact bilaterally. Throat, no evidence of erythema or exudates in the posterior pharynx. Has poor dentition. NECK: Supple. Good range of motion. PULMONARY: Clear to auscultation bilaterally. No wheezing, no rales, no rhonchi, no crackles appreciated. CARDIOVASCULAR: Positive S1, S2. No murmurs, rubs, or gallops appreciated. ABDOMEN: Soft, nondistended, and nontender to palpation. Bowel sounds present. MUSCULOSKELETAL: Strength is 5/5 throughout. No evidence of any muscle deficits on examination. No weakness appreciated. NEUROLOGICAL: Cranial nerves II through XII grossly intact. No evidence of any neurological deficits on exam. SKIN: Intact. Warm to touch. Good cap refill. PSYCHIATRIC: Normal affect and mood. EXTREMITIES: No edema. Good range of motion throughout. LABORATORY DATA: Normal. IMPRESSION: 1. End-stage renal disease, on hemodialysis. 2. Anemia of end-stage renal disease. 3. Left big toe osteomyelitis. 4. Hypertension. 5. Type 2 diabetes. 6. Urinary tract infection. 7. Bacteremia. PLAN: At this time, hemodialysis per Nephrology. She is on IV antibiotics. Scheduled for angiogram later this week by Cardiology. Continue with insulin sliding scale and Accu-Cheks. Resume same antihypertensive medications. She is currently on IV antibiotics for underlying UTI and bacteremia and being managed accordingly by ID. Plan is to discharge to LTAC. Work with PT and OT daily, heparin for DVT prophylaxis. MD RAFAELA Ayala/CARLEEN /[id number]
[2018-10-06] VITALS (7 sets, daily range): BP systolic 113–135; BP diastolic 55–66
[2018-10-06] MEDS: CALCIUM ACETATE 667 MG GELCAP PO SCH ×5 (05:00→20:36)
[2018-10-06 05:49] LABS: BASOPHILS # (AUTO) 0.1 (0.0-0.1); BASOPHILS % 0.7 % (0.0-1.0); EOSINOPHILS # (AUTO) 0.1 (0.0-0.4); EOSINOPHILS % 1.6 % (0.0-6.0); HEMOGLOBIN 8.7 g/dL (12.0-16.0); LYMPHOCYTES # (AUTO) 3.1 (1.0-3.2); MEAN CORPUSCULAR HEMOGLOBIN 31.8 pg (28-32); MEAN CORPUSCULAR HGB CONC 34.8 g/dL (31-35); MEAN CORPUSCULAR VOLUME 91.2 fL (81-99); MONOCYTES # (AUTO) 0.9 (0.2-0.8); MONOCYTES % 10.3 % (4.4-11.3); NEUTROPHILS # (AUTO) 4.6 (2.1-6.9); NEUTROPHILS % 52.1 % (38.7-80.0); PLATELET COUNT 145 x10e3/uL (140-360); RED BLOOD COUNT 2.74 x10e6/uL (3.6-5.1); RED CELL DISTRIBUTION WIDTH 13.3 % (11.7-14.4)
[2018-10-06 06:12] LABS: ANION GAP 15.5 mmol/L (8-16); CALCIUM 7.7 mg/dL (8.4-10.2); CREATININE, SERUM 6.44 mg/dL (0.57-1.11); POTASSIUM 3.5 mmol/L (3.5-5.1)
[2018-10-06] MEDS: INSULIN LISPRO 100 UNIT/1 ML 3ML VIAL SQ SCH ×4 (07:30→20:37)
--- NOTE | 2018-10-06 08:16 | NUR ---
SPOKE WITH DR. GARNER REGARDING PATIENT'S DIALYSIS DATES- NO DIALYSIS SET FOR TODAY, ORDER OKAY TO ADMINISTER MORNING MEDICATIONS. DR. GARNER WILL ROUND ON THE PATIENT LATER THIS MORNING. .
--- NOTE | 2018-10-06 08:33 | NUR ---
CALLED AND SPOKE WITH DR. RODRIGUEZ REGARDING PATIENT'S PROCEDURE TIME AND DIET ORDER- ORDER TO KEEP PATIENT ON CLEAR LIQUID DIET.
[2018-10-06] MEDS: HEPARIN SOD (PORCINE) 5,000 UNIT/ML VIAL SC SCH (08:39)
[2018-10-06] MEDS: PIPERACILLIN/TAZO 2.25 GM 50 ML IV SCH ×2 (08:39→20:36)
[2018-10-06] MEDS: CLOPIDOGREL BISULFATE 75 MG TAB PO SCH (08:39)
[2018-10-06] MEDS: PANTOPRAZOLE SOD 40 MG TABEC PO SCH (08:39)
[2018-10-06] MEDS: METOPROLOL SUCCINATE 25 MG TAB XL PO SCH (08:40)
[2018-10-06 11:19] LABS: CHOL/HDL RATIO 2.6 (3.0-3.6)
[2018-10-06] MEDS ORDERED: CLOPIDOGREL BISULFATE 300 MG TAB-DO NOT STOCK PO ONE (11:30)
--- NOTE | 2018-10-06 12:01 | Progress Note ---
DATE: 10/06/2018 SUBJECTIVE: The patient is doing well today with no complaints. Scheduled for possibly angiogram of the lower extremities later today. OBJECTIVE: VITAL SIGNS: She is afebrile, normotensive. Respiratory rate is good. GENERAL: Not in acute distress. Alert and oriented x3. Cooperative on examination. HEENT: Head is normocephalic and atraumatic. Eyes; pupils are equal, round, and reactive to light bilaterally. Extraocular movements are intact bilaterally. Throat, no evidence of erythema or exudates in the posterior pharynx. Has poor dentition. NECK: Supple. Good range of motion. PULMONARY: Clear to auscultation bilaterally. No wheezing, no rales, no rhonchi, no crackles appreciated. CARDIOVASCULAR: Positive S1, S2. No murmurs, rubs, or gallops appreciated. ABDOMEN: Soft, nondistended, and nontender to palpation. Bowel sounds present. MUSCULOSKELETAL: Strength is 5/5 throughout. No evidence of any muscle deficits on examination. No weakness appreciated. NEUROLOGICAL: Cranial nerves II through XII grossly intact. No evidence of any neurological deficits on exam. SKIN: Intact. Warm to touch. Good cap refill. PSYCHIATRIC: Normal affect and mood. EXTREMITIES: No edema. Good range of motion throughout. LABS FINDINGS: Reviewed and stable. MICROBIOLOGY: Urine culture, Klebsiella pneumoniae. Blood culture shows gram-negative rods, one of two. ID is following. IMPRESSION: 1. Sepsis with underlying bacteremia/urinary tract infection. 2. End-stage renal disease, on dialysis. 3. Anemia of end-stage renal disease. 4. Left big toe osteomyelitis. 5. Hypertension. 6. Type 2 diabetes. PLAN: At this time, continue with IV vancomycin and Zosyn for ID recommendations. ID is following closely. She is scheduled for possibly getting angiogram of lower extremity later today. Nephrology consulted for hemodialysis treatment. Pending LTAC placement. We will continue same plan of care. MD RAFAELA Ayala/BREL /[id number]
[2018-10-06] MEDS ORDERED: CLOPIDOGREL BISULFATE 75 MG TAB PO ONE (12:45)
[2018-10-06] MEDS ORDERED: LIDOCAINE HCL 2% LOCAL 20 ML VIAL ONE (15:49)
[2018-10-06] MEDS ORDERED: MIDAZOLAM HCL 2 MG/2 ML VIAL ONE (15:49)
[2018-10-06] MEDS ORDERED: FENTANYL CITRATE/PF 100MCG/2 ML INJ ONE (15:49)
[2018-10-06] MEDS ORDERED: IOPAMIDOL 300MG/ML 100 ML INFUS..BTL IV ONE (15:50)
[2018-10-06] MEDS ORDERED: SODIUM CHLORIDE 0.9% 1000ML 1,000 ML ONE (15:50)
[2018-10-06] MEDS ORDERED: HEPARIN SOD/SOD CHLORIDE 2,000 ML ONE (15:50)
--- NOTE | 2018-10-06 16:21 | NUR ---
PATIENT OFF THE UNIT PER BED TO CORPORATE COUNSELOR- PATIENT IN STABLE CONDITION WITH NO S/S OF RESPIRATORY DISTRESS. TELE ON.
[2018-10-06] MEDS ORDERED: ONDANSETRON HCL INJ 2MG/ML 2ML 2 MG/ML VIAL IV PRN (17:45)
[2018-10-06] MEDS: EPOETIN ALFA 10000 UNIT/ML VIAL SC SCH (18:03)
--- NOTE | 2018-10-06 18:03 | NUR ---
PATIENT BACK ON THE UNIT AT 1700- PATIENT TO REMAIN FLAT FOR 4 HOURS. PATIENT IN STABLE CONDITION WITH NO S/S OF RESPIRATORY DISTRESS. NO PAIN VOICED. DRESSING TO RIGHT GROIN AREA-DRY AND INTACT.
--- NOTE | 2018-10-06 19:43 | NUR ---
PATIENT IN STABLE CONDITION WITH NO S/S OF RESPIRATORY DISTRESS. NO PAIN VOICED. PATIENT IS TO REMAIN FLAT UNTIL 2100. CALL LIGHT IS WITHIN REACH, PATIENT INSTRUCTED TO CALL FOR ASSISTANCE NEEDED. BEDSIDE REPORT GIVEN TO ONCOMING NURSE.
--- NOTE | 2018-10-06 19:44 | NUR ---
Received change of shift report from AM nurse. Walking round completed.
[2018-10-07] VITALS: BP 126/60
--- NOTE | 2018-10-07 | NUR ---
Patient AAOx3. Continue to keep leg straight until time was up. Right arvin dry intact with no noted hemotoma. Pulses present. Patient denies pain at this time. Continue monitor.
--- NOTE | 2018-10-07 00:19 | Operative Report ---
DATE OF PROCEDURE: 10/06/2018 SURGEON: Sonny Mayorga MD TYPE OF REPORT: Peripheral Angiogram. PROCEDURES PERFORMED: 1. Abdominal aortogram with bilateral lower extremity runoff. INDICATIONS FOR PROCEDURE: A 58-year-old lady with history of hypertension, type 2 diabetes, end-stage renal disease, on hemodialysis, coronary artery disease, prior history of CABG, peripheral stenting done in the past, who comes in with ischemic rest pain of the left lower extremity, nonhealing ulceration of the left great toe with critical limb ischemia. DESCRIPTION OF PROCEDURE NOTE: After risks, benefits, pros, cons, risks, procedure explained, the patient agreed to proceed. The patient was brought to the cardiac catheterization laboratory where the right groin was prepped and draped in usual sterile fashion. A 1% lidocaine was used in the right groin region and access to the right femoral artery was obtained and a 5-Bolivian femoral sheath was placed. We initially went up with a 5-Bolivian Omni-Flush diagnostic catheter placed in the abdominal aorta. An abdominal aortogram of the bilateral lower extremity was performed. After noting self expanding stents that were hanging out well into the aorta from a previously revasculariztaion/ stents hanging into the christiano, this did not allow us to go up and over as it typically is done for peripheral revascularization. Furthermore, the patient did not have a good alternative access readily available and we decided to conclude the case at the diagnostic shots. At the conclusion of the case, the femoral sheath was removed and manual compression was applied achieving hemostasis. COMPLICATIONS: None. ESTIMATED BLOOD LOSS: Minimal. FINDINGS: 1. The abdominal aorta shows mild diffuse disease, gives rise to the bilateral iliac arteries. There is a two self expanding stents hanging out into the aorta going into the common iliac arteries with a reconstructed christiano. There is a good three 4 mm of stent hanging well into the aorta and limits up and over catheter manipulation. 2. The bilateral common and external iliac arteries are with mild luminal irregularities. 3. The bilateral common femoral arteries, just mild diffuse disease. 4. The right SFA has a 60% proximal stenosis followed by diffuse 60% mid stenosis. 5. The left SFA is 100% occluded proximally and is reconstituted at the adductor canal level. 6. The right popliteal artery has a 50% focal stenosis. 7. Left popliteal artery, there are mild irregularities. 8. The right anterior tibial artery has a 70% proximal stenosis. The anterior tibial artery rapidly tapers into the foot and the foot are with diffuse severe disease. 9. The right TP trunk is with mild luminal irregularities. 10. The right peroneal and posterior tibial arteries, mild luminal irregularities with the exception of the right posterior tibial artery is 100% occluded at the ankle level. 11. The left anterior tibial artery has a 40% proximal stenosis followed by 100% stenosis at the foot level extending into the dorsalis pedis artery. 12. Left TP trunk is with mild luminal irregularities 13. Left peroneal artery is with mild luminal irregularities. 14. Left posterior tibial artery is 100% occluded at the ankle level. 15. The left foot is supplied by extensive small collateral network with diffuse severe disease. PLAN/RECOMMENDATIONS: 1. 6hr bedrest post diagnostic angiography today. 2. ICD was made for the patient along with a copy of her diagram was made for her. We expressed our concerns over lack of conventional access in terms of revascularization options percutaneously and suggested that perhaps the safest approach may be a left femoral-popliteal bypass. Nonetheless, since the patient has a good working relationship with Dr. Gaines who has done her previous surgery, we will recommend her to see him as an outpatient. 3. Aggressive risk factor modification and medical therapy. 4. Antibiotic therapy per ID service. MD ENOCH Doshi/CARLEEN /[id number] LISA
[2018-10-07 04:00] VITALS: BP 127/60
[2018-10-07] MEDS: CALCIUM ACETATE 667 MG GELCAP PO SCH ×4 (05:00→17:00)
--- NOTE | 2018-10-07 06:04 | NUR ---
Patient in bed with no c/o at this time. Continue monitoring.
[2018-10-07 06:44] LABS: BASOPHILS # (AUTO) 0.1 (0.0-0.1); BASOPHILS % 0.7 % (0.0-1.0); EOSINOPHILS # (AUTO) 0.2 (0.0-0.4); EOSINOPHILS % 1.8 % (0.0-6.0); HEMATOCRIT 25.1 % (34.2-44.1); HEMOGLOBIN 8.6 g/dL (12.0-16.0); LYMPHOCYTES % 23.9 % (18.0-39.1); MEAN CORPUSCULAR HEMOGLOBIN 31.4 pg (28-32); MEAN CORPUSCULAR HGB CONC 34.3 g/dL (31-35); MEAN CORPUSCULAR VOLUME 91.6 fL (81-99); MONOCYTES # (AUTO) 0.7 (0.2-0.8); MONOCYTES % 8.7 % (4.4-11.3); NEUTROPHILS # (AUTO) 5.4 (2.1-6.9); NEUTROPHILS % 64.4 % (38.7-80.0); PLATELET COUNT 162 x10e3/uL (140-360); RED BLOOD COUNT 2.74 x10e6/uL (3.6-5.1); RED CELL DISTRIBUTION WIDTH 13.3 % (11.7-14.4)
--- NOTE | 2018-10-07 06:50 | NUR ---
PATIENT IS RESTING AND IN STABLE CONDITION WITH NO S/S OF RESPIRATORY DISTRESS. PATIENT DENIES PAIN. CALL LIGHT IS WITHIN REACH OF PATIENT AND PATIENT INSTRUCTED TO CALL FOR ASSISTANCE NEEDED.
[2018-10-07 07:10] LABS: ALBUMIN 2.7 g/dL (3.5-5.0); ALBUMIN/GLOBULIN RATIO 0.8 (0.8-2.0); ANION GAP 16.7 mmol/L (8-16); CREATININE, SERUM 8.15 mg/dL (0.57-1.11); POTASSIUM 3.7 mmol/L (3.5-5.1)
[2018-10-07] MEDS: INSULIN LISPRO 100 UNIT/1 ML 3ML VIAL SQ SCH ×3 (07:30→17:30)
[2018-10-07 07:39] VITALS: BP 162/73
[2018-10-07 07:41] VITALS: BP 162/73
[2018-10-07] MEDS: PIPERACILLIN/TAZO 2.25 GM 50 ML IV SCH (08:22)
[2018-10-07] MEDS: PANTOPRAZOLE SOD 40 MG TABEC PO SCH (08:22)
[2018-10-07] MEDS: METOPROLOL SUCCINATE 25 MG TAB XL PO SCH (08:22)
--- NOTE | 2018-10-07 08:55 | NUR ---
GOT CALL FROM RUI FROM [facility] GAVE CONFIRMATION NUMBER MEDICAL RECORD NUMBER FOR THIS PT [phone]. LET KNOW SHE WOULD BE DISCHARGING TO [facility]. SHE STATES THEY WILL JUST HAVE TO CALL AND GIVE CONFIRMATION WHEN READY TO DISCHARGE FROM THERE AND THEY WILL CONTINUE PLACEMENT FOR [facility].
[2018-10-07] MEDS ORDERED: CLOPIDOGREL BISULFATE 75 MG TAB PO SCH (09:00)
--- NOTE | 2018-10-07 09:21 | NUR ---
CALL PLACED OUT TO DR. GARNER AND DR. RODRIGUEZ REGARDING DISCHARGE CLEARANCE. RECEIVED CALLBACK FROM DR. GARNER WITH DISCHARGE CLEARANCE.
--- NOTE | 2018-10-07 09:28 | NUR ---
RECEIVED CLEARANCE FROM DR. RODRIGUEZ FOR PATIENT TO DISCHARGE TO [facility].
--- NOTE | 2018-10-07 09:58 | NUR ---
CALL PLACED OUT TO DR. DING REGARDING DISCHARGE ORDER- AWAITING CALLBACK.
--- NOTE | 2018-10-07 10:38 | NUR ---
ORDER FROM DELMI GARCIA, P.A. FOR VANCO TROUGH BEFORE NEXT VANCOMYCIN IF PATIENT REMAINS IN OUR CARE.; IF PATIENT TRANSFERS TO [facility], ORDER FOR VANCO TROUGH TO BE DONE AT [facility].
[2018-10-07 11:08] VITALS: BP 124/60
[2018-10-07 15:37] VITALS: BP 136/62
--- NOTE | 2018-10-07 16:17 | NUR ---
CALLED REPORT TO [facility]- SPOKE WITH EMANUEL FOWLER @[phone]
--- NOTE | 2018-10-07 19:14 | NUR ---
PATIENT DISCHARGE TO [facility]- PATIENT IS IN STABLE CONDITION WITH NO S/S OF RESPIRATORY DISTRESS. IV INTACT TO RIGHT WRIST. TRANSFER PACKET GIVEN TO [facility]. ALL PERSONAL ITEMS TAKEN WITH THE PATIENT.
--- NOTE | 2018-10-09 07:56 | Discharge Summary ---
FINAL DISCHARGE DIAGNOSES: 1. Sepsis with underlying bacteremia, urinary tract infection. 2. End-stage renal disease, on hemodialysis. 3. Anemia of end-stage renal disease. 4. Left big toe osteomyelitis. 5. Severe peripheral artery disease, status post angiogram, will need bypass by CP surgery. 6. Hypertension. 7. Type 2 diabetes. CONSULTANTS: We had Cardiology. We had Infectious Disease. We had Nephrology. PHYSICAL EXAMINATION: VITAL SIGNS: Temperature 98.1, pulse 85, respirations 18, blood pressure 136/62, pulse ox 98% on room air. LABORATORY FINDINGS: Show white count 8.4, hemoglobin 8.6, hematocrit 25, platelets of 162. Coagulations; PT 14, INR 1, PTT 37. Chemistry; sodium 136, potassium 3.7, chloride 100, bicarb 23, anion gap of 16, BUN glucose 160, calcium 8. Iron saturation was 24%. LFTs were normal. Troponins were all negative. Albumin 2.7. LDL was 56. Urinalysis concerning for UTI. Biology; urine culture positive for Klebsiella pneumoniae pansensitive and blood cultures one of two shows Acinetobacter lwoffii, which is also pansensitive. IMAGING STUDIES: Chest x-ray was found to show some interstitial pulmonary edema. Foot x-ray concerns of osteomyelitis of the distal phalanx of the great toe. HOSPITAL COURSE: This is a 58-year-old female, who came in with worsening left big toe pain and discoloration concerning for underlying osteomyelitis. The patient was admitted with x-ray consistent with osteomyelitis. ID was consulted. The patient was on broad-spectrum IV antibiotics. One of two blood cultures were positive for Acinetobacter lwoffii and urine culture was positive for Klebsiella pneumoniae. These cultures being managed by Infectious Disease. The patient will need to continue with IV antibiotics for 6 total weeks per ID recommendations. The patient also had a lower extremity angiogram by Cardiology. There was no intervention performed as the patient has severe PAD and which will require outpatient followup with a CV surgeon or vascular surgeon for bypass. Nephrology was consulted for HD management, which was performed accordingly. On discharge, the patient had agreed to go to [facility] for further antibiotic therapy and management. On discharge, the patient was back to normal baseline with no other complaints. On the day of discharge, vital signs stable, labs reviewed and stable. The patient seen and evaluated, examined thoroughly on the day of discharge with no other complaints. The patient verbalized understanding and agrees to plan of care to follow up as an outpatient with the primary care physician in 1 week and consultants as described above in about 2 weeks' time. MEDICATIONS: See med reconciliation form. DISPOSITION: [facility]. CONDITION: Stable. DIET: Renal. In the event of any worsening symptoms, the patient was advised to come back to the ED for further evaluation. Discharge summary took greater than 35 minutes. MD RAFAELA Ayala/MODL /[id number]
== END 2018-10-07 17:57 | DRG 637 ==
LOC: ER 08:14 → ERHOLD 11:56 → MED/SURG3 12:18
PROVIDERS: ADMIT Internal Medicine; ATTEND Internal Medicine
PROC: B41D1ZZ Fluoroscopy of Aorta and Bilateral Lower Extremity Arteries using Low Osmolar Contrast (ICD-10-PCS; principal; 2018-10-03)
PROC: 5A1D70Z Performance of Urinary Filtration, Intermittent, Less than 6 Hours Per Day (ICD-10-PCS; 2018-10-03)
PROC: 5A1D70Z Performance of Urinary Filtration, Intermittent, Less than 6 Hours Per Day (ICD-10-PCS; 2018-10-04)
DX: E11.69 Type 2 diabetes mellitus with other specified complication (principal); A41.9 Sepsis, unspecified organism; I12.0 Hypertensive chronic kidney disease with stage 5 chronic kidney disease or end stage renal disease; N39.0 Urinary tract infection, site not specified; E87.2 Acidosis; M86.8X7 Other osteomyelitis, ankle and foot; N18.6 End stage renal disease; E11.22 Type 2 diabetes mellitus with diabetic chronic kidney disease; Z99.2 Dependence on renal dialysis; Z79.4 Long term (current) use of insulin; D63.1 Anemia in chronic kidney disease; E11.51 Type 2 diabetes mellitus with diabetic peripheral angiopathy without gangrene; B96.1 Klebsiella pneumoniae [K. pneumoniae] as the cause of diseases classified elsewhere; E78.00 Pure hypercholesterolemia, unspecified; I70.228 Atherosclerosis of native arteries of extremities with rest pain, other extremity; J44.9 Chronic obstructive pulmonary disease, unspecified; F17.210 Nicotine dependence, cigarettes, uncomplicated
CPT/HCPCS: 36245; 36415; 71045; 75625; 75716; 80048; 80053; 80061; 81001; 82550; 82553; 82728; 82948; 83036; 83540; 84100; 84466; 84484; 84550; 85025; 85610; 85730; 86704; 86705; 86706; 87040; 87071; 87086; 87186; 87205; 87340; 90962; 93005; 93306; 93925; 99284; C1766; C1769; J1644; J2001; J2250; J2405; J2543; J3370; J7030; J7050; Q4081; Q9967